=== PATIENT | female | born 1980 | race Caucasian/White ===

== ENCOUNTER → 2021-03-11 | Outpatient (CLI) | payer BC ==
--- NOTE | 2021-03-12 10:58 | CT ---
EXAMINATION TYPE: CT abdomen w con DATE OF EXAM: 03/11/2021 HISTORY: Liver lesion CT DLP: 1246.70mGycm Automated Exposure Control for Dose Reduction was Utilized. CONTRAST: CT scan of the abdomen is performed with oral and with IV Contrast, patient injected with 100 ml mL o f Isovue 300. COMPARISON: None FINDINGS: LUNG BASES: No significant abnormality is appreciated. LIVER/GB: Gallbladder is contracted in appearance. Liver measures upper limits of normal in size. The re is no concerning solid or cystic intrahepatic renal mass identified. No biliary dilatation noted. PANCREAS: No significant abnormality is seen. SPLEEN: No significant abnormality is seen. ADRENALS: No significant abnormality is seen. KIDNEYS: Horseshoe type kidney or fusion of the lower pole modalities not completely imaged. No kanwal rning renal mass or hydronephrosis bilaterally. BOWEL: No significant abnormality is seen. LYMPH NODES: No greater than 1cm abdominal lymph nodes are appreciated. OSSEOUS STRUCTURES: No significant abnormality is seen. OTHER: No significant additional abnormality is seen. IMPRESSION: No suspicious focal intrahepatic mass.
== END | disposition home or self-care (01) ==
LOC: RADCTMAIN 17:19
PROVIDERS: ATTEND Family Medicine
DX: K76.9 Liver disease, unspecified (principal)
CPT/HCPCS: 74160; Q9967